=== PATIENT | female | born 1975 | race Hispanic/Latino ===

== ENCOUNTER 2017-03-12 03:48 | Emergency (ER) | payer OTHER ==
[~2017-03-12] VITALS: Ht 162.6 cm; Wt 78.9 kg
[2017-03-12] MEDS ORDERED: ZOFRAN8 MG PO (04:51)
[2017-03-12 05:39] LABS: CHLORIDE 105 mEq/L (99-109); POTASSIUM 3.6 mEq/L (3.7-5.4); SODIUM 138 mEq/L (136-147)
[2017-03-12 05:41] LABS: GLUCOSE 147 mg/dL (70-99)
[2017-03-12 05:42] LABS: HEMATOCRIT 42.4 % (36.0-46.0); MCH 28.8 PG (29.0-34.0); MCHC 32.3 G/DL (30.0-36.0); MCV 89.3 FL (83-99); MEAN PLAT.VOLUME 10.7 uM^3 (9.5-12.4); PLATELET COUNT 324 K/uL (156-360); RBC DIS.WIDTH-CV 13.6 % (11.8-14.6); RBC DIS.WIDTH-SD 44.6 % (39-53); RED BLOOD COUNT 4.75 M/uL (3.80-5.20); WHITE BLOOD COUNT 13.9 K/uL (4.1-10.2)
[2017-03-12 05:45] LABS: ALKALINE PHOSPHATASE 75 IU/L (3-129); ANION GAP 5 MEQ/L (2-14); GFR ESTIMATE (CALCULATED) > 59 mL/min/; TOTAL BILIRUBIN 0.5 mg/dL (0.0-1.0)
[2017-03-12 05:46] LABS: UREA NITROGEN (BUN) 14 mg/dL (9-23)
[2017-03-12 05:48] LABS: LIPASE 9 U/L (1.0-51.0)
[2017-03-12 05:56] LABS: SERUM ETHYL ALCOHOL < 10 mg/dL
[2017-03-12 06:04] VITALS: BP 123/83
== END 2017-03-12 06:06 | disposition home or self-care (01) ==
LOC: EME 03:48
PROVIDERS: Emergency Medicine
DX: R11.2 Nausea with vomiting, unspecified (principal); R10.30 Lower abdominal pain, unspecified; R51 Headache; F10.99 Alcohol use, unspecified with unspecified alcohol-induced disorder
CPT/HCPCS: 80053; 83690; 85027; 93005; 99281; 99285; G0480; J1885; J2765; J7030

== ENCOUNTER 2017-11-28 22:55 | Emergency (ER) | payer OTHER ==
[~2017-11-28] VITALS: Ht 162.6 cm; Wt 77.0 kg
[~2017-11-28 22:55] MED LIST: ZOFRAN8 MG PO
[2017-11-29 00:28] LABS: BASOPHIL (%) 0.3 % (0-1); EOSINOPHIL COUNT 0.2 K/uL (0-0.3); HEMATOCRIT 41.3 % (36.0-46.0); HEMOGLOBIN 13.8 G/DL (11.9-15.5); IMMATURE GRANULOCYTE (%) 0.7 % (0.0-0.7); LYMPHOCYTE (%) 16.4 % (15-42); MCHC 33.4 G/DL (30.0-36.0); MCV 89.8 FL (83-99); MONOCYTE (%) 5.9 % (3-12); MONOCYTE COUNT 0.7 K/uL (0-0.8); NEUTROPHIL (%) 74.7 % (45-76); NEUTROPHIL COUNT 9.1 K/uL (1.8-6.4); PLATELET COUNT 267 K/uL (156-360); RBC DIS.WIDTH-SD 45.7 % (39-53); WHITE BLOOD COUNT 12.2 K/uL (4.1-10.2)
[2017-11-29 00:41] LABS: ALBUMIN 3.9 g/dL (3.2-4.8)
[2017-11-29 00:42] LABS: CHLORIDE 107 mEq/L (99-109); POTASSIUM 4.3 mEq/L (3.7-5.4); SODIUM 139 mEq/L (136-147)
[2017-11-29 00:44] LABS: GLUCOSE 155 mg/dL (70-99); TOTAL PROTEIN 7.7 g/dL (6.4-8.3)
[2017-11-29 00:46] LABS: TOTAL BILIRUBIN 0.3 mg/dL (0.0-1.0)
[2017-11-29 00:47] LABS: ALKALINE PHOSPHATASE 220 IU/L (3-129)
[2017-11-29 00:48] LABS: CREATININE 0.7 mg/dL (0.6-1.3); GFR ESTIMATE (CALCULATED) > 59 mL/min/
[2017-11-29 00:49] LABS: AST (GOT) 65 IU/L (2-34); DIRECT BILIRUBIN 0.1 mg/dL (0.0-0.3); UREA NITROGEN (BUN) 9 mg/dL (9-23)
[2017-11-29 00:51] LABS: ALT (GPT) 165 IU/L (3-49); LIPASE 26 U/L (1.0-51.0)
[2017-11-29] MEDS ORDERED: ZOFRAN4 MG PO (02:56)
[2017-11-29] MEDS ORDERED: TAMIFLU75 MG PO (02:56)
[2017-11-29 04:07] VITALS: BP 111/79
== END 2017-11-29 04:11 | disposition home or self-care (01) ==
LOC: EME 22:55
PROVIDERS: Emergency Medicine
DX: J11.1 Influenza due to unidentified influenza virus with other respiratory manifestations (principal); G43.909 Migraine, unspecified, not intractable, without status migrainosus; F32.9 Major depressive disorder, single episode, unspecified
CPT/HCPCS: 80048; 80076; 83690; 85025; 87502; 99281; 99284; J1200; J1630; J2405; J2765; J7030